=== PATIENT | female | born 1935 | race Caucasian/White ===

== ENCOUNTER 2024-03-12 15:30 | Inpatient (IN) | payer OTHER ==
[~2024-03-12] VITALS: Ht 154.9 cm; Wt 61.2 kg
[2024-03-12] MEDS: SODIUM CHLORIDE 0.9% 500 ML IV ONE (17:07)
[2024-03-12 17:33] LABS: HEMATOCRIT. 33.9 % (36.0-48.0); HEMOGLOBIN. 10.8 g/dL (12.0-16.0); MEAN CORPUSCULAR HEMOGLOBIN 28.3 pg (28.0-32.0); MEAN CORPUSCULAR HGB CONC 31.8 g/dL (31.0-37.0); MEAN CORPUSCULAR VOLUME 88.8 fL (81.0-99.0); MEAN PLATELET VOLUME 10.2 fl (7.4-10.4); PLATELET 234 x1000/uL (130-400); RED BLOOD CELL COUNT 3.82 mill/uL (4.2-5.4); RED CELL DISTRIBUTION WIDTH 16.5 % (11.6-14.6); WHITE BLOOD COUNT 15.6 x1000/uL (4.5-11.0)
[2024-03-12 17:34] LABS: DIFFERENTIAL COMMENT 1
[2024-03-12 17:36] LABS: CHLORIDE 100 mEq/L (98-107); POTASSIUM 5.9 mEq/L (3.5-5.1); SODIUM 135 mEq/L (136-145)
[2024-03-12 17:37] LABS: CARBON DIOXIDE 20 mEq/L (21-32)
[2024-03-12 17:38] LABS: CALCIUM 8.9 mg/dL (8.7-10.4)
[2024-03-12 17:42] LABS: CREATININE 3.7 mg/dL (0.6-1.0)
[2024-03-12 17:43] LABS: UREA NITROGEN BLOOD 73 mg/dL (9-23)
[2024-03-12 17:49] LABS: THYROID STIMULATING HORMONE 9.55 uIU/mL (0.55-4.78)
[2024-03-12 17:58] LABS: GLUCOSE 493 mg/dL (70-105); TROPONIN I HIGH SENSITIVITY 4535 ng/L (3.0-34)
[2024-03-12 18:06] LABS: ANISOCYTOSIS 1+; PLATELET ESTIMATE NORMAL
[2024-03-12] MEDS ORDERED: HEPARIN 5000 UNITS/ML VIAL IV ONE (19:00)
[2024-03-12] MEDS ORDERED: HEPARIN 25,000 UNITS PREMIX 250 ML IV ONE (19:00)
[2024-03-12] MEDS: CALCIUM GLUCONATE 1GM PREMIX 50 ML IV NR (19:15)
[2024-03-12] MEDS: INSULIN REGULAR (HUMULIN R) 1000UNITS/10ML VIAL IV NR (19:15)
[2024-03-12] MEDS: ASPIRIN 325MG EC TABLET PO NR (19:29)
[2024-03-12 20:18] LABS: INR 1.1; PARTIAL THROMBOPLASTIN TIME 28.2 sec (23.4-31.0); PROTHROMBIN TIME 12.5 sec (9.6-11.0)
[2024-03-12] MEDS: HEPARIN 60 UNITS/KG BOLUS IV SCH (21:21)
[2024-03-12 22:16] VITALS: BP 109/44; PULSE 50; PULSE 94; RESP 20; TEMP 36.4736; TEMP 36.55848; O2SAT 99
[2024-03-12] MEDS: HEPARIN 25,000 UNITS PREMIX 250 ML IV SCH (22:49)
[2024-03-13] VITALS (12 sets, daily range): BP systolic 92–140; BP diastolic 49–116; PULSE 61–75; RESP 15–24; TEMP 36.16956–36.55848; O2SAT 98–100
[2024-03-13] MEDS ORDERED: HEPARIN BOLUS PRN aPTT 30-44 IV (04:00)
[2024-03-13] MEDS ORDERED: HEPARIN BOLUS PRN aPTT <30 IV (04:00)
[2024-03-13] MEDS: BLOOD SUGAR DIAGNOSTIC STRIP TEST SCH ×2 (07:59→08:06)
[2024-03-13] MEDS: INSULIN LISPRO 100 UNITS/ML SUBCUT SCH (08:20)
[2024-03-13] MEDS: ASPIRIN 81MG TABLET PO SCH (08:21)
[2024-03-13] MEDS: INSULIN GLARGINE 100 UNITS/ML SUBCUT SCH (10:13)
[2024-03-13] MEDS: SODIUM CHLORIDE 0.9% 1,000 ML IV SCH (11:38)
[2024-03-13 13:53] LABS: BG BASE EXCESS -2.3 mmol/L (-2.0-3.0); BG CARBOXYHEMOGLOBIN 0.3 % (0.5-1.5); BG DEOXYHEMOGLOBIN 2.1 % (0.0-5.0); BG FRACTION INSPIRED OXYGEN 21; BG HCO3 ACT 20.3 mmol/L (21.0-28.0); BG METHEMOGLOBIN 0.3 % (0.5-1.5); BG OXYGEN SATURATION 97.9 % (94.0-98.0); BG OXYHEMOGLOBIN 97.3 % (94.0-98.0); BG PH 7.478 (7.350-7.450); BG PO2 102.8 mmHg (83.0-108.0); BG SAMPLE SITE RIGHT RADIAL; BG TOTAL HEMOGLOBIN 10.8 g/dL (12.0-16.0); BG VENT MODE ROOM AIR
[2024-03-13] MEDS: CEFTRIAXONE 1GM/50ML 50 ML IV SCH (14:45)
[2024-03-13 17:19] LABS: CARBON DIOXIDE 22 mEq/L (21-32); CHLORIDE 105 mEq/L (98-107); POTASSIUM 4.2 mEq/L (3.5-5.1); SODIUM 141 mEq/L (136-145)
[2024-03-13 17:25] LABS: CREATININE 2.6 mg/dL (0.6-1.0); GLUCOSE 160 mg/dL (70-105); UREA NITROGEN BLOOD 77 mg/dL (9-23)
[2024-03-13 17:27] LABS: PHOSPHORUS 3.6 mg/dL (2.5-4.9)
[2024-03-13 17:35] LABS: TROPONIN I HIGH SENSITIVITY 8030 ng/L (3.0-34)
[2024-03-13 17:41] LABS: BASOPHILS % 0.3 % (0.0-2.0); EOSINOPHILS % 0.7 % (0.0-5.0); HEMATOCRIT. 32.9 % (36.0-48.0); HEMOGLOBIN. 10.7 g/dL (12.0-16.0); LYMPHOCYTES % 11.9 % (20.0-50.0); MEAN CORPUSCULAR HEMOGLOBIN 28.5 pg (28.0-32.0); MEAN CORPUSCULAR HGB CONC 32.6 g/dL (31.0-37.0); MEAN CORPUSCULAR VOLUME 87.4 fL (81.0-99.0); MEAN PLATELET VOLUME 10.2 fl (7.4-10.4); MONOCYTES % 4.8 % (2.0-8.0); NEUTROPHILS % 82.3 % (40.0-76.0); PLATELET 230 x1000/uL (130-400); RED BLOOD CELL COUNT 3.77 mill/uL (4.2-5.4); RED CELL DISTRIBUTION WIDTH 15.9 % (11.6-14.6)
[2024-03-13 19:08] LABS: CLARITY URINE CLOUDY (CLEAR); COLOR URINE YELLOW (YELLOW); GLUCOSE URINE NEGATIVE (NEGATIVE); KETONES URINE NEGATIVE (NEGATIVE); LEUKOCYTE ESTERASE URINE 2+ (NEGATIVE); NITRITE URINE NEGATIVE (NEGATIVE); OCCULT BLOOD URINE TRACE (NEGATIVE); PH URINE 5.5 (4.5-8.0); PROTEIN URINE 1+ (NEGATIVE); SPECIFIC GRAVITY URINE 1.018 (1.005-1.030)
[2024-03-13] MEDS: ENOXAPARIN 60MG/0.6ML SYR SUBCUT SCH (19:09)
[2024-03-13 19:37] LABS: BACTERIA URINE 3+; RBC URINE 0-2 /hpf (0-2); SQUAMOUS EPITHELIAL CELL URINE 1+ /lpf (RARE/1+)
[2024-03-13] MEDS: ATORVASTATIN CALCIUM 40MG TABLET PO SCH (21:44)
[2024-03-13 22:10] LABS: BASOPHILS % 0.2 % (0.0-2.0); EOSINOPHILS % 0.7 % (0.0-5.0); HEMATOCRIT. 32.8 % (36.0-48.0); HEMOGLOBIN. 10.7 g/dL (12.0-16.0); LYMPHOCYTES % 13.4 % (20.0-50.0); MEAN CORPUSCULAR HEMOGLOBIN 28.5 pg (28.0-32.0); MEAN CORPUSCULAR HGB CONC 32.6 g/dL (31.0-37.0); MEAN CORPUSCULAR VOLUME 87.4 fL (81.0-99.0); MEAN PLATELET VOLUME 9.9 fl (7.4-10.4); MONOCYTES % 6.2 % (2.0-8.0); NEUTROPHILS % 79.5 % (40.0-76.0); PLATELET 242 x1000/uL (130-400); RED BLOOD CELL COUNT 3.75 mill/uL (4.2-5.4); RED CELL DISTRIBUTION WIDTH 15.8 % (11.6-14.6); WHITE BLOOD COUNT 12.6 x1000/uL (4.5-11.0)
[2024-03-13 22:24] LABS: POTASSIUM 3.7 mEq/L (3.5-5.1)
[2024-03-13 22:26] LABS: CALCIUM 8.7 mg/dL (8.7-10.4)
[2024-03-13 22:30] LABS: CREATININE 2.2 mg/dL (0.6-1.0)
[2024-03-14] VITALS (12 sets, daily range): BP systolic 121–146; BP diastolic 68–97; PULSE 75–95; RESP 15–23; TEMP 36.28068–36.89184; O2SAT 96–100
[2024-03-14 07:25] LABS: BASOPHILS % 0.3 % (0.0-2.0); EOSINOPHILS % 0.7 % (0.0-5.0); HEMOGLOBIN. 11.1 g/dL (12.0-16.0); LYMPHOCYTES % 11.1 % (20.0-50.0); MEAN CORPUSCULAR HEMOGLOBIN 28.8 pg (28.0-32.0); MEAN CORPUSCULAR HGB CONC 32.7 g/dL (31.0-37.0); MEAN CORPUSCULAR VOLUME 88.1 fL (81.0-99.0); MEAN PLATELET VOLUME 10.2 fl (7.4-10.4); MONOCYTES % 7.8 % (2.0-8.0); NEUTROPHILS % 80.1 % (40.0-76.0); PLATELET 248 x1000/uL (130-400); RED BLOOD CELL COUNT 3.86 mill/uL (4.2-5.4); RED CELL DISTRIBUTION WIDTH 15.8 % (11.6-14.6); WHITE BLOOD COUNT 12.9 x1000/uL (4.5-11.0)
[2024-03-14 07:31] LABS: POTASSIUM 3.6 mEq/L (3.5-5.1)
[2024-03-14 07:32] LABS: CALCIUM 8.9 mg/dL (8.7-10.4)
[2024-03-14 07:37] LABS: CREATININE 1.9 mg/dL (0.6-1.0)
[2024-03-14 07:41] LABS: T4 FREE 1.35 ng/dL (0.89-1.76)
[2024-03-14] MEDS: LEVOTHYROXINE SODIUM 50MCG TABLET PO SCH (09:04)
[2024-03-14] MEDS: HYDROXYZINE 10MG TABLET PO PRN (12:08)
[2024-03-14 22:11] LABS: TROPONIN I HIGH SENSITIVITY 5907 ng/L (3.0-34)
[2024-03-15] VITALS: BP 119/70; PULSE 85; RESP 15; TEMP 36.44736; O2SAT 96
[2024-03-15 02:00] VITALS: BP 138/74; PULSE 85; RESP 21; O2SAT 95
[2024-03-15 04:00] VITALS: BP 123/77; PULSE 94; RESP 18; TEMP 36.55848; O2SAT 96
[2024-03-15 06:00] VITALS: BP 116/64; PULSE 83; RESP 21; O2SAT 95
[2024-03-15] MEDS: LORAZEPAM 1MG TABLET PO NR (09:56)
[2024-03-15 13:31] LABS: CHLORIDE 113 mEq/L (98-107); POTASSIUM 3.7 mEq/L (3.5-5.1); SODIUM 145 mEq/L (136-145)
[2024-03-15 13:32] LABS: CALCIUM 8.4 mg/dL (8.7-10.4); CARBON DIOXIDE 23 mEq/L (21-32)
[2024-03-15 13:37] LABS: CREATININE 1.1 mg/dL (0.6-1.0); GLUCOSE 75 mg/dL (70-105); UREA NITROGEN BLOOD 29 mg/dL (9-23)
[2024-03-15 13:39] LABS: PHOSPHORUS 2.6 mg/dL (2.5-4.9)
[2024-03-15 13:57] LABS: BASOPHILS % 0.8 % (0.0-2.0); DIFFERENTIAL COMMENT 1; HEMATOCRIT. 34.8 % (36.0-48.0); HEMOGLOBIN. 11.3 g/dL (12.0-16.0); LYMPHOCYTES % 14.5 % (20.0-50.0); MEAN CORPUSCULAR HEMOGLOBIN 28.9 pg (28.0-32.0); MEAN CORPUSCULAR HGB CONC 32.4 g/dL (31.0-37.0); MEAN CORPUSCULAR VOLUME 89.1 fL (81.0-99.0); MONOCYTES % 7.6 % (2.0-8.0); NEUTROPHILS % 73.1 % (40.0-76.0); RED BLOOD CELL COUNT 3.91 mill/uL (4.2-5.4); WHITE BLOOD COUNT 9.8 x1000/uL (4.5-11.0)
[2024-03-15 13:58] LABS: PLATELET 188 x1000/uL (130-400)
[2024-03-15] MEDS: DEXTROSE 50% WATER 50ML SYRINGE IV PRN ×2 (14:12→15:44)
[2024-03-15 16:13] VITALS: BP 110/70; PULSE 87; TEMP 96.9; O2SAT 96
[2024-03-15] MEDS ORDERED: BLOOD SUGAR DIAGNOSTIC STRIP TEST SCH (17:30)
[2024-03-15] MEDS ORDERED: INSULIN LISPRO 100 UNITS/ML SUBCUT SCH (18:00)
== END 2024-03-15 17:00 | disposition short-term general hospital (02) | DRG 871 ==
LOC: ER 15:30 → EDBEDREQTM 21:16 → EDBEDREQ 21:16 → EDBEDREQSVC 21:16 → 5EST 22:03
PROVIDERS: ADMIT Internal Medicine; ATTEND Internal Medicine
DX: A41.9 Sepsis, unspecified organism (principal); I21.4 Non-ST elevation (NSTEMI) myocardial infarction; N17.0 Acute kidney failure with tubular necrosis; I44.2 Atrioventricular block, complete; N39.0 Urinary tract infection, site not specified; D64.9 Anemia, unspecified; E11.22 Type 2 diabetes mellitus with diabetic chronic kidney disease; E78.5 Hyperlipidemia, unspecified; E87.5 Hyperkalemia; R00.1 Bradycardia, unspecified; F03.90 Unspecified dementia, unspecified severity, without behavioral disturbance, psychotic disturbance, mood disturbance, and anxiety; I12.9 Hypertensive chronic kidney disease with stage 1 through stage 4 chronic kidney disease, or unspecified chronic kidney disease; E03.9 Hypothyroidism, unspecified; Z82.49 Family history of ischemic heart disease and other diseases of the circulatory system; Z83.3 Family history of diabetes mellitus
CPT/HCPCS: 36415; 36600; 71045; 76770; 80048; 81003; 82375; 82550; 82805; 82962; 83036; 83735; 83880; 84100; 84439; 84443; 84484; 85025; 93005; 93306; 99285; A4606; J0610; J0696; J1644; J1650; J1815; J7030

== ENCOUNTER 2024-06-16 09:55 | Inpatient (IN) | payer OTHER, MEDICARE ==
[2024-06-16] VITALS (29 sets, daily range): BP systolic 63–173; BP diastolic 32–161; PULSE 59–143; RESP 11–35; TEMP 36.3; O2SAT 99–100
[~2024-06-16] VITALS: Ht 149.9 cm; Wt 65.8 kg
[2024-06-16] MEDS ORDERED: VANCOMYCIN 1000MG/250ML 250 ML IV STA (10:04)
[2024-06-16] MEDS ORDERED: CEFEPIME 2GM IN DEXT 5% 100ML IV STA (10:04)
[2024-06-16] MEDS: DEXTROSE 50% WATER 50ML SYRINGE IV ONE ×2 (10:15→14:15)
[2024-06-16 10:30] LABS: BASOPHILS % 0.4 % (0.0-2.0); EOSINOPHILS % 1.1 % (0.0-5.0); HEMATOCRIT. 35.6 % (36.0-48.0); HEMOGLOBIN. 11.4 g/dL (12.0-16.0); LYMPHOCYTES % 17.6 % (20.0-50.0); MEAN CORPUSCULAR HEMOGLOBIN 27.3 pg (28.0-32.0); MEAN CORPUSCULAR HGB CONC 31.9 g/dL (31.0-37.0); MEAN CORPUSCULAR VOLUME 85.6 fL (81.0-99.0); MEAN PLATELET VOLUME 8.4 fl (7.4-10.4); MONOCYTES % 9.5 % (2.0-8.0); NEUTROPHILS % 71.4 % (40.0-76.0); PLATELET 293 x1000/uL (130-400); RED BLOOD CELL COUNT 4.16 mill/uL (4.2-5.4); RED CELL DISTRIBUTION WIDTH 17.2 % (11.6-14.6); WHITE BLOOD COUNT 9.1 x1000/uL (4.5-11.0)
[2024-06-16 10:40] LABS: CHLORIDE 108 mEq/L (98-107); SODIUM 137 mEq/L (136-145)
[2024-06-16 10:41] LABS: CALCIUM 9.9 mg/dL (8.7-10.4); CARBON DIOXIDE 17 mEq/L (21-32)
[2024-06-16] MEDS: CEFEPIME 2GM/50ML DUPLEX 50 ML IV NR (10:45)
[2024-06-16] MEDS: NOREPINEPHRINE 8MG/250ML PMX 250 ML IV ONE (10:45)
[2024-06-16 10:46] LABS: GLUCOSE 52 mg/dL (70-105)
[2024-06-16 10:48] LABS: ALANINE AMINOTRANSFERASE 25 IU/L (10-49); ALBUMIN 3.6 g/dL (3.2-4.8); ASPARTATE AMINOTRANSFERASE 45 IU/L (<34); BILIRUBIN DIRECT 0.1 mg/dL (<=3.0)
[2024-06-16 10:49] LABS: BILIRUBIN TOTAL 0.3 mg/dL (0.1-1.0); PROTEIN TOTAL 7.7 g/dL (6.0-8.3)
[2024-06-16 10:50] LABS: POTASSIUM 6.5 mEq/L (3.5-5.1); UREA NITROGEN BLOOD 94 mg/dL (9-23)
[2024-06-16 10:51] LABS: CREATININE 3.6 mg/dL (0.6-1.0)
[2024-06-16 10:53] LABS: TROPONIN I HIGH SENSITIVITY 119 ng/L (3.0-34)
[2024-06-16] MEDS: HYDROCORTISONE SOD SUCCINATE 100 MG/2 ML VIAL IV ONE (11:25)
[2024-06-16] MEDS: VANCOMYCIN 1G PREMIX 200 ML IV STA (11:34)
[2024-06-16] MEDS: CALCIUM GLUCONATE 100MG/ML 10ML VIAL IV ONE (11:34)
[2024-06-16] MEDS: ASPIRIN 325MG TABLET PO ONE (14:16)
[2024-06-16] MEDS ORDERED: IPRATROPIUM/ALBUTEROL 0.5-3(2.5)MG/3ML NEB HHN PRN (14:45)
[2024-06-16] MEDS ORDERED: DOCUSATE SODIUM 100MG CAPSULE PO PRN (14:45)
[2024-06-16] MEDS ORDERED: MAGNESIUM/ALUMINUM HYDROXIDE/SIMETHICONE 30ML UDC PO PRN (14:45)
[2024-06-16] MEDS ORDERED: CLONIDINE 0.1MG TABLET PO PRN (14:45)
[2024-06-16] MEDS ORDERED: ACETAMINOPHEN 325MG TABLET PO PRN ×2 (14:45)
[2024-06-16] MEDS: ENOXAPARIN 30MG/0.3ML SYR SUBCUT ONE (14:49)
[2024-06-16 14:52] LABS: CALCIUM 10.2 mg/dL (8.7-10.4)
[2024-06-16] MEDS: INSULIN REGULAR (HUMULIN R) 1000UNITS/10ML VIAL IV ONE (14:53)
[2024-06-16 14:57] LABS: CREATININE 2.8 mg/dL (0.6-1.0)
[2024-06-16] MEDS: LIDOCAINE HCL 1% 10 MG/ML 10ML VIAL ONE (14:58)
[2024-06-16] MEDS: FUROSEMIDE 40MG/4ML VIAL IV NR (16:30)
[2024-06-16] MEDS: SODIUM BICARBONATE 8.4% 50MEQ/50ML SYR IV NR ×2 (17:16→20:38)
[2024-06-16] MEDS: DEXT 5%/0.9% NACL 1,000 ML IV SCH (17:16)
[2024-06-16] MEDS: DEXTROSE 50% WATER 50ML SYRINGE IV NR (17:16)
[2024-06-16] MEDS: CALCIUM CHLORIDE 1GM/10ML SYR IV NR (17:17)
[2024-06-16] MEDS: INSULIN REGULAR (HUMULIN R) 1000UNITS/10ML VIAL IV NR (17:17)
[2024-06-16] MEDS: SODIUM POLYSTYRENE SULFONATE 15 G/60 ML BOT PO NR (17:17)
[2024-06-16] MEDS: ONDANSETRON HCL 4MG/2ML INJ IV PRN (17:31)
[2024-06-16] MEDS: PHENYLEPHRINE 100 MG in DEXT 5% WATER 240 ML IV PRN (17:37)
[2024-06-16] MEDS: AMIODARONE 360MG/200ML 200 ML IV SCH (18:02)
[2024-06-16] MEDS ORDERED: DEXTROSE 50% WATER 50ML SYRINGE IV PRN ×2 (18:45→19:30)
[2024-06-16] MEDS ORDERED: ATOR40TA70 PO (19:33)
[2024-06-16] MEDS ORDERED: EMPA25TA PO (19:33)
[2024-06-16] MEDS ORDERED: LISI-186 PO (19:33)
[2024-06-16] MEDS ORDERED: CLOP75TA33 PO (19:33)
[2024-06-16] MEDS: SODIUM CHLORIDE 0.9% 1,000 ML IV SCH (20:37)
[2024-06-16] MEDS: BLOOD SUGAR DIAGNOSTIC STRIP TEST SCH (20:39)
[2024-06-16] MEDS: INSULIN LISPRO 100 UNITS/ML SUBCUT SCH (20:40)
[2024-06-16] MEDS: VASOPRESSIN 20 UNIT in SODIUM CHLORIDE 0.9% 99 ML IV PRN (20:47)
[2024-06-16] MEDS ORDERED: INSULIN LISPRO 100 UNITS/ML SUBCUT SCH (21:00)
[2024-06-16] MEDS ORDERED: BLOOD SUGAR DIAGNOSTIC STRIP TEST SCH (21:00)
[2024-06-16] MEDS: NOREPINEPHRINE 8MG/250ML PMX 250 ML IV PRN (21:25)
[2024-06-16] MEDS: SODIUM CHLORIDE 0.9% 1,500 ML IV ONE (21:28)
[2024-06-16 21:42] LABS: BG BASE EXCESS -6.1 mmol/L (-2.0-3.0); BG CARBOXYHEMOGLOBIN 0.3 % (0.5-1.5); BG DEOXYHEMOGLOBIN 1.9 % (0.0-5.0); BG FRACTION INSPIRED OXYGEN 21; BG HCO3 ACT 16.5 mmol/L (21.0-28.0); BG METHEMOGLOBIN 0.3 % (0.5-1.5); BG OXYGEN SATURATION 98.1 % (94.0-98.0); BG OXYHEMOGLOBIN 97.5 % (94.0-98.0); BG PCO2 24.4 mmHg (32.0-45.0); BG PH 7.448 (7.350-7.450); BG PO2 114.7 mmHg (83.0-108.0); BG SAMPLE SITE LEFT RADIAL; BG TOTAL HEMOGLOBIN 10.5 g/dL (12.0-16.0); BG VENT MODE ROOM AIR
[2024-06-16 21:52] LABS: POTASSIUM 5.5 mEq/L (3.5-5.1)
[2024-06-16 22:03] LABS: T4 FREE 1.36 ng/dL (0.89-1.76); THYROID STIMULATING HORMONE 5.8 uIU/mL (0.55-4.78)
[2024-06-16 22:05] LABS: LACTIC ACID 5.7 mmol/L (0.4-2.0)
[2024-06-16] MEDS: ALBUTEROL (0.083%) 2.5MG/3ML NEB HHN NR (22:07)
[2024-06-16 22:09] LABS: PARTIAL THROMBOPLASTIN TIME 26.8 sec (23.4-31.0); PROTHROMBIN TIME 11.2 sec (9.6-11.0)
[2024-06-16 23:02] LABS: *AMPHETAMINES SCREEN URINE NEGATIVE (NEGATIVE); *BARBITURATES SCREEN URINE NEGATIVE (NEGATIVE); *BENZODIAZEPINES SCREEN URINE NEGATIVE (NEGATIVE); *COCAINE SCREEN URINE NEGATIVE (NEGATIVE); CANNABINOID URINE SCREEN NEGATIVE (NEGATIVE); ECSTASY MDMA SCREEN URINE NEGATIVE (NEGATIVE); METHADONE URINE SCREEN NEGATIVE (NEGATIVE); OPIATES URINE SCREEN NEGATIVE (NEGATIVE); PHENCYCLIDINE URINE SCREEN NEGATIVE (NEGATIVE)
[2024-06-16 23:05] LABS: CLARITY URINE CLEAR (CLEAR); COLOR URINE YELLOW (YELLOW); GLUCOSE URINE 3+ (NEGATIVE); KETONES URINE TRACE (NEGATIVE); LEUKOCYTE ESTERASE URINE TRACE (NEGATIVE); NITRITE URINE NEGATIVE (NEGATIVE); OCCULT BLOOD URINE 3+ (NEGATIVE); PROTEIN URINE 1+ (NEGATIVE); SPECIFIC GRAVITY URINE 1.013 (1.005-1.030); UROBILINOGEN URINE 0.2 E.U./dL (0.2-1.0)
[2024-06-17] VITALS (162 sets, daily range): BP systolic 30–171; BP diastolic 13–137; PULSE 88–148; RESP 15–41; TEMP 96.9–100; O2SAT 0–100
[2024-06-17 00:58] LABS: HEMOGLOBIN 11.2 g/dL (12.0-16.0); MEAN CORPUSCULAR HEMOGLOBIN 27.1 pg (28.0-32.0); MEAN CORPUSCULAR HGB CONC 31.2 g/dL (31.0-37.0); PLATELET 266 x1000/uL (130-400); RED BLOOD CELL COUNT 4.14 mill/uL (4.2-5.4); RED CELL DISTRIBUTION WIDTH 17.5 % (11.6-14.6); WHITE BLOOD COUNT 13.8 x1000/uL (4.5-11.0)
[2024-06-17] MEDS: AZITHROMYCIN 500MG/250ML 250 ML IV SCH (04:08)
[2024-06-17 04:29] LABS: SQUAMOUS EPITHELIAL CELL URINE FEW /lpf (RARE/1+)
[2024-06-17 04:31] LABS: RBC URINE 0-2 /hpf (0-2)
[2024-06-17 04:36] LABS: BACTERIA URINE 1+
[2024-06-17 06:04] LABS: HEMATOCRIT. 41.2 % (36.0-48.0); HEMOGLOBIN. 12.4 g/dL (12.0-16.0); MEAN CORPUSCULAR HEMOGLOBIN 27.2 pg (28.0-32.0); MEAN CORPUSCULAR HGB CONC 30.1 g/dL (31.0-37.0); MEAN CORPUSCULAR VOLUME 90.1 fL (81.0-99.0); MEAN PLATELET VOLUME 8.7 fl (7.4-10.4); PLATELET 260 x1000/uL (130-400); RED BLOOD CELL COUNT 4.57 mill/uL (4.2-5.4); RED CELL DISTRIBUTION WIDTH 18.5 % (11.6-14.6); WHITE BLOOD COUNT 16.7 x1000/uL (4.5-11.0)
[2024-06-17 06:21] LABS: ALBUMIN 3.1 g/dL (3.2-4.8); TRIGLYCERIDE 132 mg/dL (0-150)
[2024-06-17 06:22] LABS: LDL CHOLESTEROL 57 mg/dL (5-100)
[2024-06-17 06:23] LABS: CHOLESTEROL 132 mg/dL (<200); HDL CHOLESTEROL 54 mg/dL (>65); PHOSPHORUS 3.8 mg/dL (2.5-4.9)
[2024-06-17] MEDS: PANTOPRAZOLE 40MG DR TABLET PO SCH (06:30)
[2024-06-17] MEDS: CEFTRIAXONE 2GM/50ML 50 ML IV SCH (07:09)
[2024-06-17 07:23] LABS: DIFFERENTIAL COMMENT 1
[2024-06-17 08:48] LABS: BG BASE EXCESS -14.1 mmol/L (-2.0-3.0); BG CARBOXYHEMOGLOBIN 0.2 % (0.5-1.5); BG DEOXYHEMOGLOBIN 0.6 % (0.0-5.0); BG FRACTION INSPIRED OXYGEN 100; BG HCO3 ACT 10.6 mmol/L (21.0-28.0); BG METHEMOGLOBIN 0.3 % (0.5-1.5); BG OXYGEN SATURATION 99.4 % (94.0-98.0); BG OXYHEMOGLOBIN 98.9 % (94.0-98.0); BG PCO2 23.1 mmHg (32.0-45.0); BG PO2 243.8 mmHg (83.0-108.0); BG SAMPLE SITE ALINE; BG TOTAL HEMOGLOBIN 13.6 g/dL (12.0-16.0); BG VENT MODE VENT - P/C
[2024-06-17 09:26] LABS: INFLUENZA TYPE A Presumptive Negative (Pres. Neg.); INFLUENZA TYPE B Presumptive Negative (Pres. Neg.)
[2024-06-17 09:27] LABS: RESPIRATORY SYNCYTIAL VIRUS Not Detected (Not Detectd)
[2024-06-17] MEDS: SODIUM BICARBONATE 100 MEQ in DEXTROSE 5% WATER 900 ML IV SCH (09:35)
[2024-06-17] MEDS: ENOXAPARIN 30MG/0.3ML SYR SUBCUT SCH (09:53)
[2024-06-17] MEDS: ASPIRIN 81MG EC TABLET PO SCH (09:53)
[2024-06-17] MEDS: NOREPINEPHRINE 32 MG in DEXT 5% WATER 218 ML IV PRN (10:00)
[2024-06-17 10:02] LABS: HEMATOCRIT. 39.5 % (36.0-48.0); HEMOGLOBIN. 12.6 g/dL (12.0-16.0); MEAN CORPUSCULAR HEMOGLOBIN 27.4 pg (28.0-32.0); MEAN CORPUSCULAR HGB CONC 31.9 g/dL (31.0-37.0); MEAN CORPUSCULAR VOLUME 85.8 fL (81.0-99.0); PLATELET 259 x1000/uL (130-400); RED BLOOD CELL COUNT 4.61 mill/uL (4.2-5.4); RED CELL DISTRIBUTION WIDTH 17.7 % (11.6-14.6); WHITE BLOOD COUNT 10.8 x1000/uL (4.5-11.0)
[2024-06-17 10:21] LABS: DIFFERENTIAL COMMENT 1
[2024-06-17] MEDS ORDERED: CALCIUM CHLORIDE 1GM/10ML SYR IV ONE (10:30)
[2024-06-17 10:50] LABS: CALCIUM 10.9 mg/dL (8.7-10.4); POTASSIUM 5.3 mEq/L (3.5-5.1)
[2024-06-17 10:56] LABS: CREATININE 2.6 mg/dL (0.6-1.0)
[2024-06-17 13:32] LABS: PLATELET ESTIMATE NORMAL
[2024-06-17 13:33] LABS: ANISOCYTOSIS 1+
[2024-06-17 14:27] LABS: PLATELET ESTIMATE NORMAL
[2024-06-17 14:28] LABS: ANISOCYTOSIS 1+
[2024-06-17 17:44] LABS: CHLORIDE 109 mEq/L (98-107); POTASSIUM 5.7 mEq/L (3.5-5.1); SODIUM 143 mEq/L (136-145)
[2024-06-17 17:50] LABS: UREA NITROGEN BLOOD 53 mg/dL (9-23)
[2024-06-17 17:52] LABS: ALANINE AMINOTRANSFERASE 635 IU/L (10-49); ALBUMIN 2.8 g/dL (3.2-4.8); ASPARTATE AMINOTRANSFERASE > 1000 IU/L (<34); BILIRUBIN TOTAL 0.5 mg/dL (0.1-1.0); PROTEIN TOTAL 6.8 g/dL (6.0-8.3)
[2024-06-17 18:13] LABS: CALCIUM 10.5 mg/dL (8.7-10.4); CARBON DIOXIDE 12 mEq/L (21-32)
[2024-06-17 18:18] LABS: CREATININE 2.6 mg/dL (0.6-1.0); GLUCOSE 327 mg/dL (70-105)
[2024-06-17] MEDS: ACETAMINOPHEN 650MG/20.3ML UDC PO PRN (18:34)
[2024-06-17] MEDS ORDERED: DEXTROSE 50% WATER 50ML SYRINGE IV PRN (19:00)
[2024-06-17] MEDS: PROPOFOL 10MG/ML 100ML 100 ML IV PRN (19:56)
[2024-06-17] MEDS ORDERED: ALBUTEROL (0.083%) 2.5MG/3ML NEB HHN NR (20:15)
[2024-06-17] MEDS: BUDESONIDE 0.5MG/2ML NEB HHN SCH (20:28)
[2024-06-17] MEDS: IPRATROPIUM/ALBUTEROL 0.5-3(2.5)MG/3ML NEB HHN SCH (20:28)
[2024-06-17] MEDS: CALCIUM CHLORIDE 1GM/10ML SYR IV NR (20:29)
[2024-06-17] MEDS: SODIUM BICARBONATE 8.4% 50MEQ/50ML SYR IV NR (20:29)
[2024-06-17] MEDS: DEXTROSE 50% WATER 50ML SYRINGE IV NR (20:29)
[2024-06-17] MEDS: SODIUM ZIRCONIUM CYCLOSILICATE 10GM/PACKET PO NR (20:29)
[2024-06-17] MEDS: INSULIN REGULAR (HUMULIN R) 1000UNITS/10ML VIAL IV NR (20:32)
[2024-06-17] MEDS: BLOOD SUGAR DIAGNOSTIC STRIP TEST SCH (20:45)
[2024-06-17] MEDS: INSULIN LISPRO 100 UNITS/ML SUBCUT SCH (21:00)
[2024-06-17 22:38] LABS: BG BASE EXCESS -6.7 mmol/L (-2.0-3.0); BG CARBOXYHEMOGLOBIN 0.3 % (0.5-1.5); BG DEOXYHEMOGLOBIN 3.2 % (0.0-5.0); BG FRACTION INSPIRED OXYGEN 60; BG HCO3 ACT 16.2 mmol/L (21.0-28.0); BG METHEMOGLOBIN 0.1 % (0.5-1.5); BG OXYGEN SATURATION 96.8 % (94.0-98.0); BG OXYHEMOGLOBIN 96.4 % (94.0-98.0); BG PCO2 25.2 mmHg (32.0-45.0); BG PH 7.425 (7.350-7.450); BG PO2 90.5 mmHg (83.0-108.0); BG SAMPLE SITE CPB CIRCUIT; BG TOTAL HEMOGLOBIN 11.7 g/dL (12.0-16.0); BG VENT MODE PC/AC
[2024-06-17 22:48] LABS: ALANINE AMINOTRANSFERASE 601 IU/L (10-49); ALBUMIN 2.7 g/dL (3.2-4.8); BILIRUBIN DIRECT 0.2 mg/dL (<=3.0); BILIRUBIN TOTAL 0.5 mg/dL (0.1-1.0); CHLORIDE 108 mEq/L (98-107); POTASSIUM 5.1 mEq/L (3.5-5.1); PROTEIN TOTAL 6.2 g/dL (6.0-8.3); SODIUM 143 mEq/L (136-145); UREA NITROGEN BLOOD 62 mg/dL (9-23)
[2024-06-17] MEDS: AMIODARONE 150MG/100ML D5W 100 ML IV NR (22:48)
[2024-06-17 22:49] LABS: CARBON DIOXIDE 13 mEq/L (21-32)
[2024-06-17 22:50] LABS: CALCIUM 10.8 mg/dL (8.7-10.4)
[2024-06-17 22:54] LABS: CREATININE 2.5 mg/dL (0.6-1.0)
[2024-06-17 22:58] LABS: ASPARTATE AMINOTRANSFERASE 1072 IU/L (<34)
[2024-06-17 22:59] LABS: GLUCOSE 426 mg/dL (70-105)
[2024-06-17] MEDS: MIDODRINE HCL 5MG TABLET PO SCH (23:02)
[2024-06-17] MEDS: MAGNESIUM 2 G PREMIX 50 ML IV NR (23:03)
[2024-06-17] MEDS: ALBUMIN HUMAN 12.5G/250ML (5%) IV NR (23:04)
[2024-06-17] MEDS: EPINEPHRINE 10 MG in SODIUM CHLORIDE 0.9% 240 ML IV PRN (23:06)
[2024-06-17 23:27] LABS: BETA HYDROXYBUTYRATE 0.3 mMol/L (0.0-0.3)
[2024-06-17] MEDS ORDERED: LIDOCAINE 2G PREMIX 500 ML IV PRN (23:30)
[2024-06-18] VITALS (104 sets, daily range): BP systolic 48–79; BP diastolic 33–44; PULSE 89–131; RESP 16–39; TEMP 95.4–98.6; O2SAT 38–100
[2024-06-18] MEDS: LIDOCAINE 2G PREMIX 500 ML IV SCH (00:10)
[2024-06-18] MEDS: LIDOCAINE HCL 2% 5ML SYRINGE IV NR (00:11)
[2024-06-18] MEDS: CALCIUM CHLORIDE 1GM/10ML SYR IV NR (00:45)
[2024-06-18 00:51] LABS: LACTIC ACID 10.3 mmol/L (0.4-2.0)
[2024-06-18 01:10] LABS: ALANINE AMINOTRANSFERASE 531 IU/L (10-49); ALBUMIN 2.6 g/dL (3.2-4.8); ASPARTATE AMINOTRANSFERASE 933 IU/L (<34); BILIRUBIN DIRECT 0.2 mg/dL (<=3.0); BILIRUBIN TOTAL 0.6 mg/dL (0.1-1.0); PROTEIN TOTAL 5.6 g/dL (6.0-8.3)
[2024-06-18 01:13] LABS: TROPONIN I HIGH SENSITIVITY 31369 ng/L (3.0-34)
[2024-06-18] MEDS: SODIUM BICARBONATE 150 MEQ in DEXTROSE 5% WATER 850 ML IV SCH (01:53)
[2024-06-18] MEDS: VASOPRESSIN 20 UNIT in SODIUM CHLORIDE 0.9% 99 ML IV PRN (01:54)
[2024-06-18] MEDS: PHENYLEPHRINE 100 MG in DEXT 5% WATER 240 ML IV PRN (04:15)
[2024-06-18] MEDS: EPINEPHRINE 10 MG in SODIUM CHLORIDE 0.9% 240 ML IV PRN (05:40)
[2024-06-18] MEDS: NOREPINEPHRINE 32 MG in DEXT 5% WATER 218 ML IV PRN (05:40)
[2024-06-18] MEDS: DOPAMINE 400MG/250ML PREMIX 250 ML IV PRN (05:47)
[2024-06-18 06:29] LABS: POTASSIUM 4.1 mEq/L (3.5-5.1)
[2024-06-18 06:35] LABS: CREATININE 2.2 mg/dL (0.6-1.0)
[2024-06-18] MEDS: DEXTROSE 5% WATER 1,000 ML IV SCH (07:53)
[2024-06-18 08:24] LABS: HEMATOCRIT. 30.3 % (36.0-48.0); MEAN CORPUSCULAR HEMOGLOBIN 27.2 pg (28.0-32.0); MEAN CORPUSCULAR HGB CONC 32.7 g/dL (31.0-37.0); MEAN CORPUSCULAR VOLUME 83.4 fL (81.0-99.0); PLATELET 142 x1000/uL (130-400); RED BLOOD CELL COUNT 3.64 mill/uL (4.2-5.4)
[2024-06-18 08:26] LABS: DIFFERENTIAL COMMENT 1
[2024-06-18 08:27] LABS: HEMOGLOBIN. 9.9 g/dL (12.0-16.0)
[2024-06-18 09:08] LABS: BG BASE EXCESS -8.3 mmol/L (-2.0-3.0); BG CARBOXYHEMOGLOBIN 0.9 % (0.5-1.5); BG DEOXYHEMOGLOBIN 13.9 % (0.0-5.0); BG FRACTION INSPIRED OXYGEN 60; BG HCO3 ACT 17.1 mmol/L (21.0-28.0); BG METHEMOGLOBIN 0.3 % (0.5-1.5); BG OXYGEN SATURATION 85.9 % (94.0-98.0); BG OXYHEMOGLOBIN 84.9 % (94.0-98.0); BG PCO2 34.6 mmHg (32.0-45.0); BG PH 7.311 (7.350-7.450); BG PO2 55.5 mmHg (83.0-108.0); BG SAMPLE SITE ALINE; BG TOTAL HEMOGLOBIN 10.3 g/dL (12.0-16.0); BG VENT MODE VENT - AC/PC
[2024-06-18] MEDS: EPINEPHRINE 20 MG in SODIUM CHLORIDE 0.9% 480 ML IV PRN (10:10)
[2024-06-18] MEDS ORDERED: MIDODRINE HCL 5MG TABLET PO SCH (10:15)
[2024-06-18] MEDS: HYDROCORTISONE SOD SUCCINATE 100 MG/2 ML VIAL IV SCH (10:54)
[2024-06-18 11:20] LABS: NUCLEATED RED BLOOD CELLS 1 /100 WBC
[2024-06-18 11:22] LABS: ANISOCYTOSIS 1+; PLATELET ESTIMATE NORMAL
[2024-06-18] MEDS: PROPOFOL 10MG/ML 100ML 100 ML IV PRN (11:39)
[2024-06-18] MEDS: MIDODRINE HCL 5MG TABLET PO SCH (13:14)
[2024-06-18] MEDS: MAGNESIUM 4 G PREMIX 100 ML IV NR (15:15)
[2024-06-18 15:58] LABS: TROPONIN I HIGH SENSITIVITY 21169 ng/L (3.0-34)
[2024-06-18] MEDS: INSULIN GLARGINE 100 UNITS/ML SUBCUT SCH (20:57)
[2024-06-19] VITALS (83 sets, daily range): BP systolic 49–155; BP diastolic 15–129; PULSE 0–130; RESP 0–43; TEMP 36.2–36.8; O2SAT 50–100
[2024-06-19 01:07] LABS: TROPONIN I HIGH SENSITIVITY 17843 ng/L (3.0-34)
[2024-06-19 04:35] LABS: BG BASE EXCESS -11.5 mmol/L (-2.0-3.0); BG CARBOXYHEMOGLOBIN 0.3 % (0.5-1.5); BG DEOXYHEMOGLOBIN 0.8 % (0.0-5.0); BG FRACTION INSPIRED OXYGEN 80; BG HCO3 ACT 12.1 mmol/L (21.0-28.0); BG METHEMOGLOBIN 0.3 % (0.5-1.5); BG OXYGEN SATURATION 99.2 % (94.0-98.0); BG OXYHEMOGLOBIN 98.6 % (94.0-98.0); BG PCO2 20.9 mmHg (32.0-45.0); BG PH 7.379 (7.350-7.450); BG PO2 188.4 mmHg (83.0-108.0); BG SAMPLE SITE ALINE; BG TOTAL HEMOGLOBIN 9.4 g/dL (12.0-16.0); BG VENT MODE VENT - P/C
[2024-06-19] MEDS ORDERED: DEXTROSE 50% WATER 50ML SYRINGE IV PRN ×2 (04:45→10:15)
[2024-06-19] MEDS: BLOOD SUGAR DIAGNOSTIC STRIP TEST SCH ×4 (05:23→12:25)
[2024-06-19 06:01] LABS: CHLORIDE 96 mEq/L (98-107); POTASSIUM 5.1 mEq/L (3.5-5.1)
[2024-06-19 06:02] LABS: CALCIUM 8.4 mg/dL (8.7-10.4); CARBON DIOXIDE 18 mEq/L (21-32)
[2024-06-19 06:06] LABS: HEMATOCRIT. 27.9 % (36.0-48.0); HEMOGLOBIN. 9.3 g/dL (12.0-16.0); MEAN CORPUSCULAR HEMOGLOBIN 27.8 pg (28.0-32.0); MEAN CORPUSCULAR HGB CONC 33.3 g/dL (31.0-37.0); MEAN CORPUSCULAR VOLUME 83.5 fL (81.0-99.0); MEAN PLATELET VOLUME 9.5 fl (7.4-10.4); PLATELET 113 x1000/uL (130-400); RED BLOOD CELL COUNT 3.34 mill/uL (4.2-5.4); RED CELL DISTRIBUTION WIDTH 17.8 % (11.6-14.6)
[2024-06-19 06:07] LABS: CREATININE 1.9 mg/dL (0.6-1.0); GLUCOSE 377 mg/dL (70-105); TRIGLYCERIDE 107 mg/dL (0-150)
[2024-06-19 06:08] LABS: UREA NITROGEN BLOOD 54 mg/dL (9-23)
[2024-06-19 06:09] LABS: PHOSPHORUS 2.8 mg/dL (2.5-4.9); SODIUM 129 mEq/L (136-145)
[2024-06-19 06:50] LABS: DIFFERENTIAL COMMENT 1
[2024-06-19 11:43] LABS: ANISOCYTOSIS 1+; NUCLEATED RED BLOOD CELLS 2 /100 WBC; PLATELET ESTIMATE SLIGHTLY DECREASED
[2024-06-19] MEDS: INSULIN LISPRO 100 UNITS/ML SUBCUT SCH (13:08)
[2024-06-19] MEDS ORDERED: DEXT 5%/0.9% NACL 1,000 ML IV SCH (14:00)
[2024-06-19] MEDS: DEXT 5%/0.9% NACL 1,000 ML IV ONE (14:11)
[2024-06-19] MEDS: MORPHINE SULFATE 250 MG in DEXT 5% WATER 225 ML IV PRN (17:41)
== END 2024-06-19 18:47 | DRG 871 ==
LOC: ER 09:55 → MICUSO 12:47 → EDBEDREQ 12:51 → EDBEDREQSVC 12:51 → EDBEDREQTM 12:51
PROVIDERS: ADMIT Internal Medicine; ATTEND Internal Medicine
PROC: 02HV33Z Insertion of Infusion Device into Superior Vena Cava, Percutaneous Approach (ICD-10-PCS; 2024-06-16)
PROC: B548ZZA Ultrasonography of Superior Vena Cava, Guidance (ICD-10-PCS; 2024-06-16)
PROC: 5A12012 Performance of Cardiac Output, Single, Manual (ICD-10-PCS; principal; 2024-06-17)
PROC: 5A1945Z Respiratory Ventilation, 24-96 Consecutive Hours (ICD-10-PCS; 2024-06-17)
PROC: 0BH17EZ Insertion of Endotracheal Airway into Trachea, Via Natural or Artificial Opening (ICD-10-PCS; 2024-06-17)
PROC: 03HY32Z Insertion of Monitoring Device into Upper Artery, Percutaneous Approach (ICD-10-PCS; 2024-06-17)
DX: A41.9 Sepsis, unspecified organism (principal); G92.8 Other toxic encephalopathy; I21.A1 Myocardial infarction type 2; J18.9 Pneumonia, unspecified organism; J96.01 Acute respiratory failure with hypoxia; R65.21 Severe sepsis with septic shock; J96.02 Acute respiratory failure with hypercapnia; N17.0 Acute kidney failure with tubular necrosis; I13.0 Hypertensive heart and chronic kidney disease with heart failure and stage 1 through stage 4 chronic kidney disease, or unspecified chronic kidney disease; E87.20 Acidosis, unspecified; E87.0 Hyperosmolality and hypernatremia; G93.1 Anoxic brain damage, not elsewhere classified; I47.10 Supraventricular tachycardia, unspecified; I50.20 Unspecified systolic (congestive) heart failure; N39.0 Urinary tract infection, site not specified; Z20.822 Contact with and (suspected) exposure to COVID-19; I46.9 Cardiac arrest, cause unspecified; E11.65 Type 2 diabetes mellitus with hyperglycemia; E11.649 Type 2 diabetes mellitus with hypoglycemia without coma; E87.5 Hyperkalemia; E11.22 Type 2 diabetes mellitus with diabetic chronic kidney disease; F03.90 Unspecified dementia, unspecified severity, without behavioral disturbance, psychotic disturbance, mood disturbance, and anxiety; D64.9 Anemia, unspecified; E03.8 Other specified hypothyroidism; E83.42 Hypomagnesemia; I07.1 Rheumatic tricuspid insufficiency; I25.10 Atherosclerotic heart disease of native coronary artery without angina pectoris; I27.20 Pulmonary hypertension, unspecified; I34.0 Nonrheumatic mitral (valve) insufficiency; I45.9 Conduction disorder, unspecified; N18.32 Chronic kidney disease, stage 3b; E86.1 Hypovolemia; R29.6 Repeated falls; E78.5 Hyperlipidemia, unspecified; Z79.82 Long term (current) use of aspirin; Z79.84 Long term (current) use of oral hypoglycemic drugs
CPT/HCPCS: 31500; 36415; 36573; 36600; 71045; 80048; 80053; 80061; 80076; 80305; 81003; 82010; 82040; 82248; 82330; 82375; 82805; 82947; 82962; 83036; 83605; 83735; 83880; 84100; 84132; 84145; 84439; 84443; 84478; 84484; 85025; 85027; 87420; 87426; 87804; 92950; 93005; 93970; 94002; 94003; 94070; 94640; 94664; 98960; 99291; A4606; C1725; J0282; J0456; J0610; J0692; J0696; J1265; J1650; J1720; J1815; J2003; J2371; J2405; J2704; J3370; J3475; J3490; J7030; J7040; J7050; J7060; J7070; J7626; P9041